=== PATIENT | female | born 1990 | race Two or more races ===

== ENCOUNTER 2024-06-24 12:21 | Emergency (ER) | payer OTHER ==
[~2024-06-24] VITALS: Ht 167.6 cm; Wt 97.1 kg
[2024-06-24] MEDS ORDERED: 0.9 % SODIUM CHLORIDE 1,000 ML IV STA (14:12)
[2024-06-24] MEDS ORDERED: FAMOTIDINE/PF 20 MG/2 ML VIAL IV PUSH STA (14:12)
[2024-06-24] MEDS ORDERED: ONDANSETRON HCL 2 MG/ML VIAL IV STA (14:13)
[2024-06-24] MEDS ORDERED: ONDANSETRON HCL 2 MG/ML VIAL ONE (14:53)
[2024-06-24] MEDS ORDERED: FAMOTIDINE/PF 20 MG/2 ML VIAL ONE (14:53)
[2024-06-24 15:09] LABS: HEMATOCRIT 42.1 % (36.0-45.00); MEAN CELL VOLUME 90.6 fL (80.00-100.00); MEAN CORPUSCULAR HEMOGLOBIN 30.1 pg (27.00-32.0); MEAN CORPUSCULAR HGB CONC 33.3 g/dl (32.0-36.0); PLATELET COUNT 317 K/uL (150-450); RED BLOOD COUNT 4.65 M/uL (4.00-6.00); RED CELL DISTRIBUTION WIDTH 12.6 % (11.5-14.5)
[2024-06-24 15:17] LABS: PH,URINE 5.5 (5.0-8.0); URINE APPEARANCE Clear; URINE BILIRRUBIN Negative (NEGATIVE); URINE BLOOD Negative; URINE COLOR Yellow; URINE GLUCOSE Negative (NEGATIVE); URINE KETONE Negative (NEGATIVE); URINE LEUKOCYTE Negative; URINE NITRATE Negative; URINE PROTEIN Trace (NEGATIVE)
[2024-06-24 15:18] LABS: URINE BACTERIA 691.6 uL (0.0-1933); URINE EPITHELIAL CELLS 17.6 uL (0.0-38.8); URINE WBC 22.8 uL (0.0-23.2)
[2024-06-24 15:36] LABS: ALBUMIN 3.9 gm/dL (3.4-5.0); BILIRUBIN TOTAL 0.23 mg/dL (0.3-1.2); CREATININE SERUM 0.84 mg/dL (0.55-1.02); GFR 78.57; GLOBULINA 5.1 G/DL (2.4-3.5); POTASSIUM 4.47 mEq/L (3.5-5.1)
[2024-06-24] MEDS ORDERED: PEPCID AC20 MG PO (16:31)
== END 2024-06-24 16:50 | disposition home or self-care (01) ==
LOC: ER 12:22
PROVIDERS: General Practice
DX: J06.9 Acute upper respiratory infection, unspecified (principal); Z20.822 Contact with and (suspected) exposure to COVID-19

== ENCOUNTER 2025-01-13 11:53 | Emergency (ER) | payer OTHER ==
[~2025-01-13] VITALS: Ht 167.6 cm; Wt 55.8 kg
[~2025-01-13 11:53] MED LIST: PEPCID AC20 MG PO
[2025-01-13] MEDS ORDERED: 0.9 % SODIUM CHLORIDE 1,000 ML IV STA (13:18)
[2025-01-13] MEDS ORDERED: ONDANSETRON HCL 2 MG/ML VIAL IV STA (13:18)
[2025-01-13] MEDS ORDERED: ONDANSETRON HCL 2 MG/ML VIAL ONE (13:41)
[2025-01-13 14:10] LABS: HEMATOCRIT 40.5 % (36.0-45.00); MEAN CELL VOLUME 88.6 fL (80.00-100.00); MEAN CORPUSCULAR HEMOGLOBIN 30.7 pg (27.00-32.0); MEAN CORPUSCULAR HGB CONC 34.6 g/dl (32.0-36.0); PLATELET COUNT 329 K/uL (150-450); RED BLOOD COUNT 4.57 M/uL (4.00-6.00); RED CELL DISTRIBUTION WIDTH 13.1 % (11.5-14.5)
[2025-01-13 14:33] LABS: CALCIUM 9.3 mg/dL (8.5-10.1); CREATININE SERUM 0.69 mg/dL (0.55-1.02); GFR 98.59; POTASSIUM 4.27 mEq/L (3.5-5.1)
[2025-01-13 14:36] LABS: PH,URINE 5.5 (5.0-8.0); URINE APPEARANCE Clear; URINE BACTERIA 1015.8 uL (0.0-1933); URINE BILIRRUBIN Negative (NEGATIVE); URINE BLOOD Large; URINE COLOR Yellow; URINE EPITHELIAL CELLS 23.1 uL (0.0-38.8); URINE GLUCOSE Negative (NEGATIVE); URINE KETONE Trace (NEGATIVE); URINE LEUKOCYTE Negative; URINE NITRATE Negative; URINE PROTEIN Trace (NEGATIVE); URINE RBC 224.6 uL (0.0-20.8); URINE UROBILINOGEN 0.2 E.U./dl; URINE WBC 17.5 uL (0.0-23.2)
[2025-01-13 14:41] LABS: URINE CAST 0.14 uL (0.0-1.40)
[2025-01-13] MEDS ORDERED: FAMOTIDINE/PF 20 MG in 0.9 % SODIUM CHLORIDE 8 ML IV PUSH STA (16:12)
[2025-01-13] MEDS ORDERED: DIPHENOXYLATE HCL/ATROPINE 1 UDTAB TABLET PO ONE (16:15)
[2025-01-13] MEDS ORDERED: FAMOTIDINE/PF 20 MG/2 ML VIAL ONE (16:19)
[2025-01-13] MEDS ORDERED: PEPCID AC20 MG PO (19:14)
[2025-01-13] MEDS ORDERED: DICLOFENAC SODI75 MG PO (19:14)
[2025-01-13] MEDS ORDERED: KETOROLAC TROMETHAMINE 30 MG VIAL IV ONE (19:15)
[2025-01-13] MEDS ORDERED: KETOROLAC TROMETHAMINE 30 MG VIAL ONE (19:17)
== END 2025-01-13 19:31 | disposition home or self-care (01) ==
LOC: ER 11:54
PROVIDERS: Emergency Medicine
DX: I88.0 Nonspecific mesenteric lymphadenitis (principal); K52.89 Other specified noninfective gastroenteritis and colitis